=== PATIENT | male | born 2005 | race Caucasian/White ===

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

== ENCOUNTER 2025-01-31 19:17 | Emergency (ER) | payer BC, SELFPAY ==
--- OUTSIDE RECORDS SUMMARY | 2025-01-31 19:20 | XMS_ITS | Clinical Summary ---
Author Organization [facility] Address [address] [place] [id number] Care Team Providers Care Hide Examiner Name Role Phone Mary Houston [facility] Primary Care Provider [phone] Allergies No known active allergies Social History Tobacco Use Types Packs/Day Years Used Date Smoking Tobacco: Never Assessed Sex and Gender Information Value Date Recorded Sex Assigned at Not on file Legal Sex Male 5:54 PM AGRONOMY MANAGER Gender Identity Not on file Sexual Orientation Not on file Last Filed Vital Signs Vital Sign Reading Time Taken Comments Blood Pressure 111/79 09/19/2021 4:14 PM AGRONOMY MANAGER Pulse 85 09/19/2021 4:14 PM AGRONOMY MANAGER Temperature 36.7 C (98.1 F) 09/19/2021 4:14 PM AGRONOMY MANAGER Respiratory Rate 18 09/19/2021 4:14 PM AGRONOMY MANAGER Oxygen Saturation 96% 09/19/2021 4:14 PM AGRONOMY MANAGER Inhaled Oxygen Concentration - - Weight 85.1 kg (187 lb 11.2 oz) 09/19/2021 4:14 PM AGRONOMY MANAGER Height 175.3 cm (5' 9 ) 09/19/2021 4:14 PM AGRONOMY MANAGER Body Mass Index 27.72 09/19/2021 4:14 PM AGRONOMY MANAGER Plan of Treatment Health Maintenance Due Date Last Done Comments Annual Physical 12/04/2006 DTaP, Tdap and Td Vaccines (6 - Tdap) 12/04/2014 04/16/2009, 06/16/2005, 11/03/2004, Additional history exists HPV Vaccines (1 - Male 3-dose series) 12/04/2018 Meningococcal B Vaccine (1 of 2 - Standard) 2019 Hepatitis C 12/04/2021 Hepatitis B Vaccines (1 of 3 - 19+ 3-dose series) 12/04/2022 COVID-19 Vaccine (1 - 2023- season) 2024 Meningococcal Vaccine Aged Out 05/22/2015 No rose marie prabhu eligible based on patient's age to complete this topic Pneumococcal Vaccine: Pediatrics (0 to 5 Years) and At-Risk Patients (6 to 49 Years) Aged Out No longer eligible based on patient's age to complete this topic RSV Immunizations Under 20 Months Aged Out No longer eligible based on patient's age to complete this topic [place] [address] [place] [address] [employer] Care Teams Hide Examiner Relationship Specialty Start Date End Date Mary Houston FNP-BC [address] [place] [address] PCP - General NURSE PRACTITIONER 09/18/20
--- OUTSIDE RECORDS SUMMARY | 2025-01-31 19:20 | XMS_ITS | Encounter Summary ---
Author Organization [facility] Address [address] [place] [address] Care Team Providers Care Grove Superintendent Name Role Phone Mary Houston [facility] Primary Care Provider [phone] Encounter Details Date Type Department Care Team (Late st Contact Info) Description 02/25/2019 Abstract [facility]FL CONVERSION [address] [place] [address] , Generic Conversion, Social History Tobacco Use Types Packs/Day Years Used Date Smoking Tobacco: Never Assessed Sex and Gender Information Value Date Recorded Sex Assigned at Not on file Legal Sex Male 5:54 PM SUPERVISOR TELEPHONE INFORMATION Gender Identity Not on file Sexual Orientation Not on file documented as of this encounter Plan of Treatment Not on file documented as of this encounter Visit Diagnoses Not on filedocumented in this encounter Care Teams Grove Superintendent Relationship Specialty Start Date End Date Mary Houston FNP-BC [address] [place] [address] PCP - General NURSE PRACTITIONER 09/18/20 documented as of this encounter
[2025-01-31 19:24] VITALS: BP 124/68; PULSE 91; RESP 14; TEMP 36.8; O2SAT 97
--- OUTSIDE RECORDS SUMMARY | 2025-01-31 19:40 | XMS_ITS | Clinical Summary ---
Author Organization [facility] Address [address] [place] [phone] Phone Care Team Providers Care Supervisor Type Bar And Segment Name Role Phone Provider, None Primary Care Provider Unavailabl e Allergies No known active allergies Medications methylPREDNISol one (MEDROL DOSPACK) 4 MG Tablet Therapy Pack Use as per instructions on package. 21 Tablet Active Active Problems No known active problems Encounters Date Type Department Care Team Description 01/28/2025 4:20 PM CDT Urgent Care Visit [facility] [place] [address] [place] [address] Grace Zavaleta APRN, C IRON WORKER Insect bite of right upper extremity, initial encounter (Primary Dx) Discharge Disposition: Discharged to home or Selfcare 01/28/2025 Travel from Last 3 Months Social History Tobacco Use Types Packs/Day Years Used Date Smoking Tobacco: Never Smokeless Tobacco: Current Sex and Gender Information Value Date Recorded Sex Assigned at Not on file Legal Sex Male 10:49 PM CDT Gender Identity Not on file Sexual Orientation Not on file Last Filed Vital Signs Vital Sign Reading Time Taken Comments Blood Pressure 110/66 01/28/2025 4:19 PM CDT Pulse 74 01/28/2025 4:19 PM CDT Temperature 36.9 C (98.4 F) 01/28/2025 4:19 PM CDT Respiratory Rate 20 01/28/2025 4:19 PM CDT Oxygen Saturation 96% 01/28/2025 4:19 PM CDT Inhaled Oxygen Concentration - - Weight - - Height - - Body Mass Index - - Plan of Treatment Health Maintenance Due Date Last Done Comments Hepatitis C Virus (HCV) Screening 2003 Human Papillomavirus (HPV) Immunization (1 - Male 3-dose series) 12/04/2018 Meningococcal B Immunization (1 of 2 - Standard) 2019 SARS-COV-2 Immunization (1 - season) 2024 Influenza Immunization (Season Ended) 2025 07/14/2011, 07/15/2005, 11/03/2004 Respiratory Syncytial Virus (RSV) Immunization (Adult) (1 - 1-dose 75+ series) 12/04/2078 Hepatitis B Immunization Completed 005, 06/11/2004, 02/27/2004 Pneumococcal Immunization Combined Aged Out 06/16/2005, 11/03/2004, 06/11/2004, Additional history exists No longer eligible based on patient's age to complete this topic Meningococcal Immunization (ACWY) Aged Out 05/22/2015 No longer eligible based on patient's age to complete this topic TdaP Immunization Completed 05/22/2015 Rotavirus Immunization Aged Out No lo nger eligible based on patient's age to complete this topic Insurance [place] Care Teams Supervisor Type Bar And Segment Relationship Specialty Start Date End Date Provider, None [place] PCP - General 01/28/25
--- OUTSIDE RECORDS SUMMARY | 2025-01-31 19:40 | XMS_ITS | Clinical Summary ---
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 Gender Identity Not on file Sexual Orientation Not on file Last Filed Vital Signs Vital Sign Reading Time Taken Comments Blood Pressure 111/79 09/19/2021 4:14 PM COMMUNITY SERVICE MANAGER Pulse 85 09/19/2021 4:14 PM COMMUNITY SERVICE MANAGER Temperature 36.7 C (98.1 F) 09/19/2021 4:14 PM COMMUNITY SERVICE MANAGER Respiratory Rate 18 09/19/2021 4:14 PM COMMUNITY SERVICE MANAGER Oxygen Saturation 96% 09/19/2021 4:14 PM COMMUNITY SERVICE MANAGER Inhaled Oxygen Concentration - - Weight 85.1 kg (187 lb 11.2 oz) 09/19/2021 4:14 PM COMMUNITY SERVICE MANAGER Height 175.3 cm (5' 9 ) 09/19/2021 4:14 PM COMMUNITY SERVICE MANAGER Body Mass Index 27.72 09/19/2021 4:14 PM COMMUNITY SERVICE MANAGER Plan of Treatment Health Maintenance Due [...] patient's age to complete this topic [place] [address] [place] [address] [employer] Care Teams Converter Skimmer Relationship Specialty Start Date End Date Mary Houston FNP-BC [address] [place] [address] PCP - General NURSE PRACTITIONER 09/18/20
--- OUTSIDE RECORDS SUMMARY | 2025-01-31 19:40 | XMS_ITS | Encounter Summary ---
Author Organization [facility] Address [address] [place] [address] Care Team Providers Care Household Assistant Name Role Phone Mary Houston 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
--- NOTE | 2025-01-31 19:48 | ED.GENADULT ---
HPI - General Adult General Chief complaint: Eye Problems Stated complaint: R eye swelling Time Seen by Provider: 01/31/25 19:24 History of Present Illness HPI narrative: This is a 19-year-old male presenting ED with chief complaint of eye swelling. Patient was bit by a bug on the arm several days ago and developed swelling. Went to Urgent Care was diagnosed with an allergic reaction. He was placed on a Medrol Dosepak. Tear to later he developed some mild swelling underneath his right eye. It is slightly itchy. It is not red or painful. No pain with extraocular eye movement. No pain in his eye or visual changes. Related Data Home Medications Medication Instructions Recorded Confirmed Last Taken Type No Home Medications 12/16/20 08/31/21 Unknown History Allergies Allergy/AdvReac Type Severity Reaction Status Date / Time No Known Allergies Allergy Mild Verified 01/31/25 19:19 [facility] Past Medical History Medical History Healthy adult Social History Social History (Updated 08/31/21 @ 16:38 by Markell Guerra, ) Smoking status: Never smoker Alcohol intake: never Substance use: current Substance use type: marijuana Living arrangements: with family Gender identity (if verbalized by the patient): Male Spiritual care concerns: No Exam Narrative: APPEARANCE: No apparent distress. Head: atraumatic. TMs normal, no erythema posterior pharynx EYES: EOMI, mild swelling the right infraorbital region. No pain, no redness, no pain on extraocular eye movements NOSE: Atraumatic NECK: Trachea midline RESPIRATORY: No increased rate of breathing CARDIOVASCULAR: RRR, ABDOMINAL: Non-distended MUSCULOSKELETAl: No obvious deformities NEURO: Alert. Moving 4/4 extremities SKIN:: Warm, dry. Normal color PSYCHIATRIC: Normal affect Course Vital Signs Vital signs: Vital Signs Temperature 98.2 F 01/31/25 19:24 Pulse Rate 91 01/31/25 19:24 Respiratory Rate 14 01/31/25 19:24 Blood Pressure 124/68 01/31/25 19:24 Pulse Oximetry 97 01/31/25 19:24 Oxygen Delivery Room Air 01/31/25 19:24 Temperature 98.2 F 01/31/25 19:24 Pulse Rate 91 01/31/25 19:24 Respiratory Rate 14 01/31/25 19:24 Blood Pressure 124/68 01/31/25 19:24 Pulse Oximetry 97 01/31/25 19:24 Oxygen Delivery Room Air 01/31/25 19:24 Medical Decision Making MDM Narrative Medical decision making narrative: -Course: 19-year-old male presenting with some mild swelling to his right having allergic reaction to a bug bite. He is already on steroids. Recommended cool compresses and primary care follow-up. Discharged. Return precautions for signs of infection or worsening swelling Vital Signs Vital Signs: Vital Signs Temperature 98.2 F 01/31/25 19:24 Pulse Rate 91 01/31/25 19:24 Respiratory Rate 14 01/31/25 19:24 Blood Pressure 124/68 01/31/25 19:24 Pulse Oximetry 97 01/31/25 19:24 Oxygen Delivery Room Air 01/31/25 19:24 Temperature 98.2 F 01/31/25 19:24 Pulse Rate 91 01/31/25 19:24 Respiratory Rate 14 01/31/25 19:24 Blood Pressure 124/68 01/31/25 19:24 Pulse Oximetry 97 01/31/25 19:24 Oxygen Delivery Room Air 01/31/25 19:24 Discharge Plan Discharge Clinical Impression: Periorbital swelling Patient Disposition: Home Condition: Stable Instructions: Antibiotic Form, General Allergic Reaction (ED) Additional Instructions: He was seen in the emergency department for eye swelling. Please continue the Medrol Dosepak. Please use cold compresses to decrease swelling. If the swelling becomes red, painful, or is spreading please return to the ED for re-evaluation. Patient Language: Gambian Prescriptions: No Action No Home Medications Follow-up/Referrals: PHYSICIAN,DESIGN ASSEMBLER [Primary Care Provider] -
== END 2025-01-31 20:05 | disposition home or self-care (01) ==
PROVIDERS: Emergency Provider Emergency Medicine
DX: H57.89 Other specified disorders of eye and adnexa (principal)
CPT/HCPCS: 99282

== ENCOUNTER 2025-02-11 21:35 | Emergency (ER) | payer OTHER, BC, SELFPAY ==
--- OUTSIDE RECORDS SUMMARY | 2025-02-11 21:37 | XMS_ITS | Clinical Summary ---
Author Organization [facility] Address [address] [place] [phone] Phone Care Team Providers Care Mobile Heavy Equipment Operator Name Role Phone Provider, None Primary Care Provider Unavailabl e Allergies No known active allergies Medications methylPREDNISol one (MEDROL DOSPACK) 4 MG Tablet Therapy Pack Use as per instructions on package. 21 Tablet Active Active Problems No known active problems Encounters Date Type Department Care Team Description 01/28/2025 4:20 PM CDT Urgent Care Visit [facility] - [facility] [place] [address] [place] [address] Grace Zavaleta APRN, CALL CENTER SPECIALIST Insect bite of right upper extremity, initial [...] Insurance MEDICAID [place] Care Teams Mobile Heavy Equipment Operator Relationship Specialty Start Date End Date Provider, None [place] PCP - General 01/28/25
[2025-02-11 21:44] VITALS: BP 146/82; PULSE 94; RESP 16; TEMP 36.3; O2SAT 100
--- NOTE | 2025-02-12 01:29 | PC.NURSE ---
debbie noyola - ibuprofen 600mg for inflammation/pain.
[2025-02-12] MEDS: IBUPROFEN 600 MG TABLET PO (01:33)
--- OUTSIDE RECORDS SUMMARY | 2025-02-12 03:02 | XMS_ITS | Clinical Summary ---
Author Organization [facility] Address [address] [place] [phone] Phone Care Team Providers Care Automatic Washer Mechanic Name Role Phone Provider, None Primary Care Provider Unavailabl e Allergies No known active allergies Medications methylPREDNISol one (MEDROL DOSPACK) 4 MG Tablet Therapy Pack Use as per instructions on package. 21 Tablet Active Active Problems No known active problems Encounters Date Type Department Care Team Description 01/28/2025 4:20 PM CDT Urgent Care Visit [facility] - [facility] [place] [address] [place] [address] Grace Zavaleta APRN, RESTUARANT CREW WORKER Insect bite of right upper extremity, [...] Insurance [place] Care Teams Automatic Washer Mechanic Relationship Specialty Start Date End Date Provider, None [place] PCP - General 01/28/25
--- NOTE | 2025-02-12 03:27 | ED.BURNSMOKE ---
HPI - Burn/Smoke Inhalation General Chief complaint: Burn/Smoke Inhalation Stated complaint: burn Time Seen by Provider: 02/12/25 02:56 Source: patient Mode of arrival: ambulatory Limitations: no limitations History of Present Illness HPI Narrative: Right hand dominant Patient presents with a burn after cooking oil splashed on his right hand. Related Data Allergies Allergy/AdvReac Type Severity Reaction Status Date / Time No Known Allergies Allergy Mild Verified 02/11/25 21:49 [facility] Past Medical History Medical History Right hand dominant Healthy adult Social History Social History Smoking status: Never smoker Alcohol intake: never Substance use: current Substance use type: marijuana Living arrangements: with family Occupation/Education: occupation Additional occupation/education comments: [employer] Gender identity (if verbalized by the patient): Male Spiritual care concerns: No Exam Narrative: GENERAL: Well-appearing, well-nourished, and in no acute distress. HEAD: Normocephalic, atraumatic. EYES: Non injected, non icteric ENT: Nares clear, no rhinorrhea or epistaxis. Gross auditory acuity intact. NECK: Supple. No meningismus. CHEST: Speaking in full sentences. No respiratory distress. HEART: Regular rate and rhythm. Strong radial pulse and brisk capillary refil ABDOMEN: Soft, nondistended. EXTREMITIES: Normal range of motion. Can flex and extend fingers. SKIN: Warm, dry. Approximately 1cm each clear/yellow fluid filled blisters between digits 2 and 3 and between digits 3 and 4. NEURO: No focal deficits. Alert and oriented. Answering questions. Following commands. Normal speech without aphasia or dysarthria. Sensation intact throughout digits 2 3 and 4 PSYCH: Normal mood and affect. Course Vital Signs Vital signs: Vital Signs Temperature 97.3 F L 02/11/25 21:44 Pulse Rate 94 02/11/25 21:44 Respiratory Rate 16 02/11/25 21:44 Blood Pressure 146/82 H 02/11/25 21:44 Pulse Oximetry 100 02/11/25 21:44 Oxygen Delivery Room Air 02/11/25 21:44 Temperature 97.8 F 02/12/25 04:06 Pulse Rate 86 02/12/25 04:06 Respiratory Rate 16 02/12/25 04:06 Blood Pressure 112/67 02/12/25 04:06 Pulse Oximetry 97 02/12/25 04:06 Oxygen Delivery Room Air 02/11/25 21:44 MDM - Burn/Smoke Inhalation MDM Narrative Medical decision making narrative: Right hand dominant Patient presents after cooking oil splashed on hand. Has centimeter/sub centimeter 2 second degree fluid filled blister hamilton between digits 2 and 3 and 3 and 4. In the emergency department he is afebrile with vital signs notable for hypertension though acceptable, suspect this is due to pain. Ibuprofen given. Wounds initially with saline and gauze. Is supposed to work again Wednesday/Wed/ this week. Discharged with wounds re-dressed, burn care information, and Rx as well as work note. Provided follow up contact information for a PCP. Discharge Plan Discharge Clinical Impression: 2 deg burn back of hand Patient Disposition: Home Condition: Stable Instructions: Antibiotic Form, Second-Degree Burn (ED) Additional Instructions: Acetaminophen/Tylenol (maximum 4000 mg per day) is safe to take with NSAIDs (ibuprofen/Motrin) for pain relief. Keep the wounds clean warm and dry. Try to avoid piercing the blisters. You can apply the cream that has been prescribed and a non adherent dressing. Follow-up with your primary care physician. If you do not have 1 the name of the doctors listed below. Patient Language: Kittitian Prescriptions: New silver sulfadiazine [Silvadene] 1 % cream 1 applic topical BID Qty: 20 0RF Rx Instructions: apply a 1.5 mm thickness acetaminophen 500 mg capsule 1,000 mg PO Q6H PRN (Reason: pain) Qty: 30 0RF ibuprofen 600 mg tablet 600 mg PO TID PRN (Reason: pain) Qty: 30 0RF Follow-up/Referrals: Homero Gavin DO [Physician] - PHYSICIAN,TOWER AIR TRAFFIC CONTROL SPECIALIST [Primary Care Provider] - Stand Alone Forms: Work/School Release IP Time of Disposition: 03:38
[2025-02-12] MEDS: HYDROcodone/acetaminophen (*CRX) 5-325 MG TABLET 1 TAB PO (03:53)
[2025-02-12] MEDS: BACITRACIN OINTMENT 15 GM TUBE 1 APPLIC TOPICAL (03:53)
[2025-02-12 04:06] VITALS: BP 112/67; PULSE 86; RESP 16; TEMP 36.6; O2SAT 97
== END 2025-02-12 04:07 | disposition home or self-care (01) ==
PROVIDERS: Emergency Provider Student in an Organized Health Care Education/Training Program
DX: T23.261A Burn of second degree of back of right hand, initial encounter (principal); T31.0 Burns involving less than 10% of body surface; X10.2XXA Contact with fats and cooking oils, initial encounter
CPT/HCPCS: 16020; 99283; A9270

== ENCOUNTER 2025-02-15 21:20 | Emergency (ER) | payer BC, SELFPAY ==
--- OUTSIDE RECORDS SUMMARY | 2025-02-15 21:22 | XMS_ITS | Clinical Summary ---
Author Organization [facility] Address [address] [place] [phone] Phone Care Team Providers Care Accounts Administrator Name Role Phone Provider, None Primary Care Provider Unavailabl e Allergies No known active allergies Medications methylPREDNISol one (MEDROL DOSPACK) 4 MG Tablet Therapy Pack Use as per instructions on package. 21 Tablet Active Active Problems No known active problems Encounters Date Type Department Care Team Description 01/28/2025 4:20 PM CDT Urgent Care Visit [facility] - [facility] [place] [address] [place] [address] Grace Zavaleta APRN, OLIVER FILTER OPERATOR Insect bite of right upper extremity, initial [...] Insurance MEDICAID [place] Care Teams Accounts Administrator Relationship Specialty Start Date End Date Provider, None [place] PCP - General 01/28/25
--- OUTSIDE RECORDS SUMMARY | 2025-02-15 22:25 | XMS_ITS | Clinical Summary ---
Author Organization [facility] Address [address] [place] [phone] Phone Care Team Providers Care Creative Assistant Name Role Phone Provider, None Primary Care Provider Unavailabl e Allergies No known active allergies Medications methylPREDNISol one (MEDROL DOSPACK) 4 MG Tablet Therapy Pack Use as per instructions on package. 21 Tablet Active Active Problems No known active problems Encounters Date Type Department Care Team Description 01/28/2025 4:20 PM CDT Urgent Care Visit [facility] - [facility] [place] [address] [place] [address] Grace Zavaleta APRN, CUSTOMER SERVICE CLERK Insect bite of right upper extremity, initial [...] Insurance [place] Care Teams Creative Assistant Relationship Specialty Start Date End Date Provider, None [place] PCP - General 01/28/25
== END 2025-02-15 22:21 | disposition left against medical advice (07) ==
LOC: ANHED 22:23
DX: Z53.21 Procedure and treatment not carried out due to patient leaving prior to being seen by health care provider (principal)
CPT/HCPCS: 99199